=== PATIENT | female | born 1990 | race Caucasian/White ===

== ENCOUNTER 2017-10-14 17:08 | Outpatient (CLI) | payer OTHER | END 2017-10-14 18:50 | disposition home or self-care (01) | LOC: OBT 17:08 → L-D 17:09 → OBT 18:50 | DX: O62.9 Abnormality of forces of labor, unspecified (principal); Z3A.39 39 weeks gestation of pregnancy | CPT/HCPCS: 76815; 76818 ==

== ENCOUNTER 2017-10-16 13:07 | Inpatient (IN) | payer OTHER ==
[2017-10-16] MEDS ORDERED: METHYLERGONOVINE 0.2 MG INJ IM (13:30)
[2017-10-16] MEDS ORDERED: MISOPROSTOL 200 MCG TAB PR (13:30)
[2017-10-16] MEDS ORDERED: HYDROCODONE/APAP (5/325) TAB PO (13:30)
[2017-10-16] MEDS ORDERED: LIDOCAINE 1% (MPF) 30 ML INJ INJ (13:30)
[2017-10-16] MEDS ORDERED: OXYTOCIN 30 UNITS/LR 500 ML IV (13:30)
[2017-10-16] MEDS ORDERED: CARBOPROST 250 MCG INJ IM (13:30)
[2017-10-16] MEDS ORDERED: IBUPROFEN 600 MG TAB PO (13:30)
[2017-10-16 13:56] LABS: ADD MAN DIFF? NO
[2017-10-16 13:58] LABS: WHITE BLOOD COUNT 8.7 10^3/ul (4.8-10.8)
[2017-10-16 13:58] LABS: BASOPHILS % 0.1 % (0.0-2.0); EOSINOPHILS % 0.3 % (0.0-7.0); HEMATOCRIT 35.3 % (37.0-47.0); HEMOGLOBIN 12.4 g/dl (12.0-16.0); LYMPHOCYTES # 2.1 10^3/ul (0.8-2.9); LYMPHOCYTES % 24.1 % (15.0-51.0); MEAN CORPUSCULAR HEMOGLOBIN 30.8 pg (29.0-33.0); MEAN CORPUSCULAR HGB CONC 35.1 g/dl (32.0-37.0); MEAN CORPUSCULAR VOLUME 87.6 fl (82.0-101.0); MEAN PLATELET VOLUME 10.3 fl (7.4-10.4); MONOCYTE # 0.6 10^3/ul (0.3-0.9); MONOCYTES % 6.7 % (0.0-11.0); NEUTROPHIL # 5.9 10^3/ul (1.6-7.5); NEUTROPHILS % 68.5 % (39.0-77.0); PLATELET COUNT 228 10^3/UL (140-415); RED BLOOD COUNT 4.03 10^6/ul (4.20-5.40); RED CELL DISTRIBUTION WIDTH 13.1 % (11.5-14.5)
[2017-10-16] MEDS: LACTATED RINGER'S 1,000 ML IV ×2 (14:08→22:20)
[2017-10-16 14:20] LABS: INR 0.93; PROTIME 12.6 Sec (11.9-14.9)
[2017-10-16 14:21] LABS: PARTIAL THROMBOPLASTIN TIME 27.7 Sec (25.0-35.0)
[2017-10-16] MEDS: AMPICILLIN 2 GM/NS (PMX) 100 ML IV (14:49)
[2017-10-16 14:52] LABS: HEPATITIS B SURFACE ANTIGEN NEGATIVE (NEGATIVE)
[2017-10-16 15:49] LABS: RAPID PLASMA REAGIN NONREACTIVE (NR)
[2017-10-16] MEDS: DINOPROSTONE 10 MG VAG SUPP VAG (17:23)
[2017-10-16] MEDS: AMPICILLIN 1 GM/NS (PMX) 50 ML IV ×2 (19:01→22:30)
[2017-10-16] MEDS ORDERED: LACTATED RINGER'S 1,000 ML IV (20:34)
[2017-10-16] MEDS ORDERED: MINERAL OIL LIGHT 10 ML VIAL TOP (21:00)
[2017-10-16] MEDS ORDERED: BUTORPHANOL 2 MG INJ IV (23:30)
[2017-10-16] MEDS: BUTORPHANOL 2 MG INJ IV (23:32)
[2017-10-17] MEDS: AMPICILLIN 1 GM/NS (PMX) 50 ML IV ×6 (02:01→21:39)
[2017-10-17] MEDS: LACTATED RINGER'S 1,000 ML IV ×4 (03:57→21:43)
[2017-10-17] MEDS ORDERED: AMPICILLIN 2 GM/NS (PMX) 100 ML (13:38)
[2017-10-17] MEDS ORDERED: MINERAL OIL 240 ML LOT TOP (15:30)
[2017-10-17] MEDS: OXYTOCIN 30 UNITS/LR 500 ML IV (15:54)
[2017-10-17] MEDS ORDERED: DIPHENHYDRAMINE 50 MG INJ IV (17:00)
[2017-10-17] MEDS ORDERED: ONDANSETRON 4 MG INJ IV (17:00)
[2017-10-17] MEDS ORDERED: FENTAnyl 2MCG/ML-ROPIV 0.2% 100 ML BAG EPI (17:00)
[2017-10-17] MEDS ORDERED: NALOXONE (0.4 MG/ML) INJ IV (17:00)
[2017-10-18] MEDS: AMPICILLIN 1 GM/NS (PMX) 50 ML IV (01:41)
[2017-10-18] MEDS: OXYTOCIN 30 UNITS/LR 500 ML IV ×2 (02:59→03:16)
[2017-10-18] MEDS: LACTATED RINGER'S 1,000 ML IV* ×3 (06:31→22:31)
[2017-10-18] MEDS: IBUPROFEN 600 MG TAB PO ×3 (06:45→17:58)
[2017-10-18] MEDS: BENZOCAINE 20% 56 ML SPRAY TOP (06:46)
[2017-10-18] MEDS: CEPHALEXIN 500 MG CAP PO ×3 (06:46→17:58)
[2017-10-18] MEDS: LANOLIN 7 GM TUBE TOP (06:47)
[2017-10-18] MEDS: WITCH HAZEL/GLYCERIN PAD PR (06:47)
[2017-10-18] MEDS ORDERED: CARBOPROST 250 MCG INJ IM (07:00)
[2017-10-18] MEDS ORDERED: HYDROCODONE/APAP (5/325) TAB PO ×2 (07:00)
[2017-10-18] MEDS ORDERED: OXYTOCIN 30 UNITS/LR 500 ML IV (07:00)
[2017-10-18] MEDS ORDERED: ZOLPIDEM 5 MG TAB PO (07:00)
[2017-10-18] MEDS ORDERED: MISOPROSTOL 200 MCG TAB PR (07:00)
[2017-10-18] MEDS ORDERED: METHYLERGONOVINE 0.2 MG INJ IM (07:00)
[2017-10-18] MEDS: MAGNESIUM HYDROXIDE 30ML CUP PO ×2 (08:47→21:00)
[2017-10-18] MEDS: DIBUCAINE 1% 30 GM OINT PR (08:47)
[2017-10-18] MEDS: SENNA/DOCUSATE NA (8.6MG/50MG) TAB PO ×2 (08:47→21:00)
[2017-10-19] MEDS: IBUPROFEN 600 MG TAB PO ×5 (00:30→23:51)
[2017-10-19] MEDS: CEPHALEXIN 500 MG CAP PO ×5 (00:30→23:51)
[2017-10-19] MEDS: MAGNESIUM HYDROXIDE 30ML CUP PO ×2 (09:00→21:16)
[2017-10-19] MEDS: SENNA/DOCUSATE NA (8.6MG/50MG) TAB PO ×2 (09:00→21:16)
[2017-10-19 10:50] LABS: ADD MAN DIFF? NO
[2017-10-19 10:55] LABS: BASOPHILS % 0.2 % (0.0-2.0); EOSINOPHILS % 0.4 % (0.0-7.0); HEMATOCRIT 26.1 % (37.0-47.0); LYMPHOCYTES # 2.6 10^3/ul (0.8-2.9); LYMPHOCYTES % 23.6 % (15.0-51.0); MEAN CORPUSCULAR HGB CONC 34.5 g/dl (32.0-37.0); MEAN PLATELET VOLUME 9.9 fl (7.4-10.4); MONOCYTE # 0.4 10^3/ul (0.3-0.9); MONOCYTES % 3.7 % (0.0-11.0); NEUTROPHIL # 7.8 10^3/ul (1.6-7.5); NEUTROPHILS % 71.6 % (39.0-77.0); PLATELET COUNT 183 10^3/UL (140-415); RED CELL DISTRIBUTION WIDTH 13.5 % (11.5-14.5)
[2017-10-19 10:55] LABS: WHITE BLOOD COUNT 10.9 10^3/ul (4.8-10.8)
[2017-10-20] MEDS: CEPHALEXIN 500 MG CAP PO ×2 (06:06→11:59)
[2017-10-20] MEDS: IBUPROFEN 600 MG TAB PO ×2 (06:07→11:59)
[2017-10-20] MEDS: VARICELLA VACCINE LIVE/PF 1,350 UNIT/0.5 ML ML SC* (09:00)
[2017-10-20] MEDS: SENNA/DOCUSATE NA (8.6MG/50MG) TAB PO (09:00)
[2017-10-20] MEDS: MEASLES,MUMPS,RUBELLA VACCINE INJ SC* (09:00)
[2017-10-20] MEDS: DIPHTH/TET/ACEL PERTUSS (ADULT) 0.5 ML VIAL IM* (09:00)
[2017-10-20] MEDS: MAGNESIUM HYDROXIDE 30ML CUP PO (09:00)
== END 2017-10-20 18:49 | disposition home or self-care (01) | DRG 775 ==
LOC: L-D 13:07 → PP1 10-18 06:13
PROVIDERS: Obstetrics & Gynecology
PROC: 10E0XZZ Delivery of Products of Conception, External Approach (ICD-10-PCS; principal; 2017-10-18)
PROC: 0UQKXZZ Repair Hymen, External Approach (ICD-10-PCS; 2017-10-18)
PROC: 3E033VJ Introduction of Other Hormone into Peripheral Vein, Percutaneous Approach (ICD-10-PCS; 2017-10-18)
DX: O48.0 Post-term pregnancy (principal); O69.81X0 Labor and delivery complicated by cord around neck, without compression, not applicable or unspecified; O70.0 First degree perineal laceration during delivery; Z3A.40 40 weeks gestation of pregnancy; Z37.0 Single live birth
CPT/HCPCS: 76815; 85025; 85610; 85730; 86592; 86900; 86901; 87340; 99464